=== PATIENT | female | born 1995 | race Caucasian/White ===

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

== ENCOUNTER 2017-04-09 18:06 | Emergency (ER) | payer SELFPAY ==
[~2017-04-09] VITALS: Ht 154.9 cm; Wt 49.9 kg
[2017-04-09] MEDS ORDERED: IBUPROFEN 600 MG TAB PO ONE ×2 (18:12→18:15)
[2017-04-09] MEDS ORDERED: HYDROmorphone HCL 2 MG/ML VL IV ONE (22:30)
[2017-04-09] MEDS ORDERED: ETOMIDATE (2MG/ML) 20ML VIAL IV ONE ×3 (22:46→23:30)
[2017-04-09] MEDS ORDERED: SODIUM CHLORIDE 0.9% 1,000 ML IV ONE (23:15)
[2017-04-10] MEDS ORDERED: HYDROmorphone HCL 2 MG/ML VL IV ONE
[2017-04-10 00:30] VITALS: BP 110/61
== END 2017-04-10 01:02 | disposition home or self-care (01) ==
LOC: ER 18:06
DX: S83.005A Unspecified dislocation of left patella, initial encounter (principal); W01.0XXA Fall on same level from slipping, tripping and stumbling without subsequent striking against object, initial encounter; Y93.66 Activity, soccer; Y92.89 Other specified places as the place of occurrence of the external cause; Y99.8 Other external cause status
CPT/HCPCS: 27560; 73560; 73564; 96361; 96374; 99152; 99285; J1170; J7030